=== PATIENT | male | born 1985 | race Caucasian/White ===

== ENCOUNTER → 2018-09-23 17:14 | Outpatient (CLI) | payer OTHER | END | disposition home or self-care (01) | LOC: D.RAD 17:14 | DX: M54.5 Low back pain (principal) ==

== ENCOUNTER 2019-11-16 09:41 | Emergency (ER) | payer MEDICAID ==
[~2019-11-16] VITALS: Ht 175.3 cm; Wt 81.8 kg
[2019-11-16 09:49] VITALS: Ht 175.3 cm; Wt 81.8 kg
[2019-11-16] MEDS ORDERED: GABAPENTIN300 MG PO (09:50)
[2019-11-16] MEDS ORDERED: CYCLOBENZAPRINE10 MG PO (09:50)
[2019-11-16] MEDS ORDERED: PERCOCET 10-321 EAC1 PO (09:51)
[2019-11-16] MEDS ORDERED: PENICILLIN V P500 MG PO (10:21)
[2019-11-16 11:00] VITALS: BP 133/80
== END 2019-11-16 11:01 | disposition home or self-care (01) ==
LOC: D.ER 09:41
DX: K08.89 Other specified disorders of teeth and supporting structures (principal); Z72.0 Tobacco use